=== PATIENT | male | born 1945 | race Caucasian/White ===

== ENCOUNTER 2021-03-10 15:21 | Emergency (ER) | payer MEDICARE ==
[~2021-03-10] VITALS: Ht 177.8 cm; Wt 102.7 kg
[2021-03-10] MEDS ORDERED: IOHEXOL 300 MG/ML 75 ML VIAL. IV ONE (16:00)
--- NOTE | 2021-03-10 16:03 | PHYS DOC ---
Past History Past Surgical History: Appendectomy, Other Additional Past Surgical Histo: MULTIPLE BACK SURGERIES; WRIST SURGERY; ANKLE FX REPAIR (ROSA MARIA DIAZ MD) Alcohol Use: Occasionally (ROSA MARIA DIAZ MD) General Adult EDM: Chief Complaint: CHEST PAIN HPI: HPI: Patient is a 75-year-old male sent in from his primary care office for multiple complaints. Over the past 2 weeks patient has had decreased p.o. intake. Patient states he still has an appetite tries to eat but every time he eats he gets severe substernal chest pain. Pain does not go away when he is not eating but is worse when he tries to eat. Has had some dry heaving but no vomiting. Patient started having diarrhea today and has had 7 nonbloody/nonmelanotic episodes. Denies any fevers or cough. No shortness of breath. Denies any cardiac history. Was seen by his primary care provider and has had labs drawn on 623 showed hemoglobin of 12.5, had labs drawn 86 (6 days ago) which was a hemoglobin of 10.8. Patient denies any history of heart failure or cirrhosis. States he has some postsurgical lower extremity edema that is unchanged from his baseline. Patient feels like his stomach is more distended and states that despite not eating he has gained 6 pounds. (ROSA MARIA DIAZ MD) Review of Systems: Review of Systems: All other systems within normal limits except for as noted in the HPI (ROSA MARIA DIAZ MD) Current Medications: Current Meds: Current Medications Medications (Trade) Dose Ordered Sig/Dominik Start Time Stop Time Status Last Admin Dose Admin Iohexol (Omnipaque 300 Mg/ml) 75 ml 1X ONCE 03/10/21 16:00 03/10/21 16:01 (ROSA MARIA DIAZ MD) Allergies: Allergies: Allergies Coded Allergies Type Severity Reaction Last Updated Verified No Known Drug Allergies 03/10/21 No (ROSA MARIA DIAZ MD) Physical Exam: PE: Constitutional: Well developed, well nourished, no acute distress, non-toxic appearance. [] HENT: Normocephalic, atraumatic, bilateral external ears normal, nose normal. [] Eyes: PERRLA, conjunctiva normal, no discharge. [] Neck: No rigidity, supple, no stridor. [] Cardiovascular: Regular rate and rhythm, brisk cap refill [] Lungs & Thorax: Non labored symmetric respirations, no tachypnea or respiratory distress [] Abdomen: Soft, mildly distended, left lower quadrant tenderness palpation Skin: Warm, dry, no erythema, no rash. [] Back: Unremarkable Extremities: No deformities, range of motion grossly intact, no lower extremity edema [] Neurologic: Alert and oriented X 3, no focal deficits noted. [] Psychologic: Affect normal, judgement normal, mood normal. [] (ROSA MARIA DIAZ MD) Current Patient Data: Vital Signs: Vital Signs Date Time Temp Pulse Resp B/P (MAP) Pulse Ox O2 Delivery O2 Flow Rate FiO2 03/10/21 15:35 98.4 101 19 148/71 94 Room Air (ROSA MARIA DIAZ MD) EKG: EKG: Sinus tachycardia, heart rate 102 bpm, left axis deviation, left bundle-branch block, does not meet Meagan's criteria for STEMI. Left bundle branch branch block not new according to patient's primary care provider [] (ROSA MARIA DIAZ MD) EKG: My interpretation EKG shows a sinus tachycardia 1 and 2 bpm. Leftward axis. Left bundle branch block. Is an abnormal EKG. (OFE PHILLIPS MD) Radiology/Procedures: Radiology/Procedures: [place] [address] IMAGING REPORT Signed PATIENT: MANNIE MORTON JACCOUNT: [id number] : 1945 LOCATION: ER AGE: 75 SEX: M EXAM STATUS: REG ER ORD. PHYSICIAN: ROSA MARIA DIAZ MD REASON: chest and LUQ pain PROCEDURE: CT CHEST ABD PELVIS W/CONTRAST EXAM: CT OF THE CHEST, ABDOMEN AND PELVIS WITH CONTRAST. HISTORY: Chest and left upper quadrant pain. TECHNIQUE: Computed tomography of the chest, abdomen and pelvis was performed after the intravenous administration of iodinated contrast. One or more of the following individualized dose reduction techniques were utilized for this examination: 1. Automated exposure control. 2. Adjustment of the mA and/or kV according to patient size. 3. Use of iterative reconstruction technique. COMPARISON: None. FINDINGS: Bone windows reveal no suspicious lesions. A right total shoulder arthroplasty is noted. Spinal stimulator electrodes are noted within the mid thoracic spine. There are instrumented posterior fusion changes from L4 through S1. Mildly prominent lateral aortic lymph nodes measure up to 13 x 9 mm and may be reactive in this setting. There are no clearly pathologically enlarged mediastinal or axillary lymph nodes. There is a moderate pericardial effusion with some pericardial enhancement. No pericardial masses are identified. Bilateral pleural effusions are small to moderate. The heart is not enlarged. There are atherosclerotic calcifications of the coronary arteries. There is no evidence of aortic dissection or pulmonary embolism. A groundglass density nodule in the right upper lobe on image 40 measures 8 mm. There is minimal subpleural interstitial line thickening. Compressive atelectasis is noted in both lower lobes. There is a calcified granuloma in the left upper lobe. Gallstones are noted. There is respiratory motion artifact within the upper abdomen. There appears to be mild gallbladder wall thickening. There is no biliary dilatation. The pancreas, adrenal glands, liver, spleen and kidneys are unremarkable. There is bladder wall thickening with some perivesical edema. Additional edema extends superiorly in the retroperitoneum. The colon is decompressed but also demonstrates mild wall thickening. There is no evidence of appendicitis. There is no small bowel obstruction. IMPRESSION: 1. Moderate pericardial effusion with pericardial enhancement. Correlate for pericardial inflammation. 2. Small to moderate bilateral pleural effusions. 3. A 6 mm groundglass nodule in the right upper lobe is most likely postinflammatory. Follow-up could be performed in one year if there are risk factors and long-term stability is not already known. 4. Cholelithiasis. Mild gallbladder wall thickening may reflect a systemic edematous state rather than acute cholecystitis. Correlate with other data. 5. Bladder wall thickening with perivesical inflammation. Correlate for cystitis. 6. Mild colonic wall thickening may reflect luminal decompression or colitis, versus systemic edema. Electronically signed by: Cesar Can MD (03/10/2021 5:04 PM) [id number] DICTATED AND SIGNED BY: BAILEY CAN MD DATE: 03/10/21 7825 CC: ROSA MARIA DIAZ MD; JOSE RHOADES MD ~MTH0 0 [] (ROSA MARIA DIAZ MD) Radiology/Procedures: [place] [address] IMAGING REPORT Signed PATIENT: MANNIE MORTON JACCOUNT: [id number] : 1945 LOCATION: ER AGE: 75 SEX: M EXAM STATUS: REG ER ORD. PHYSICIAN: ROSA MARIA DIAZ MD REASON: chest and LUQ pain PROCEDURE: CT CHEST ABD PELVIS W/CONTRAST EXAM: CT OF THE CHEST, ABDOMEN AND PELVIS WITH CONTRAST. HISTORY: Chest and left upper quadrant pain. TECHNIQUE: Computed tomography of the chest, abdomen and pelvis was performed after the intravenous administration of iodinated contrast. One or more of the following individualized dose reduction techniques were utilized for this examination: 1. Automated exposure control. 2. Adjustment of the mA and/or kV according to patient size. 3. Use of iterative reconstruction technique. COMPARISON: None. FINDINGS: Bone windows reveal no suspicious lesions. A right total shoulder arthroplasty is noted. Spinal stimulator electrodes are noted within the mid thoracic spine. There are instrumented posterior fusion changes from L4 through S1. Mildly prominent lateral aortic lymph nodes measure up to 13 x 9 mm and may be reactive in this setting. There are no clearly pathologically enlarged mediastinal or axillary lymph nodes. There is a moderate pericardial effusion with some pericardial enhancement. No pericardial masses are identified. Bilateral pleural effusions are small to moderate. The heart is not enlarged. There are atherosclerotic calcifications of the coronary arteries. There is no evidence of aortic dissection or pulmonary embolism. A groundglass density nodule in the right upper lobe on image 40 measures 8 mm. There is minimal subpleural interstitial line thickening. Compressive atelectasis is noted in both lower lobes. There is a calcified granuloma in the left upper lobe. Gallstones are noted. There is respiratory motion artifact within the upper abdomen. There appears to be mild gallbladder wall thickening. There is no biliary dilatation. The pancreas, adrenal glands, liver, spleen and kidneys are unremarkable. There is bladder wall thickening with some perivesical edema. Additional edema extends superiorly in the retroperitoneum. The colon is decompressed but also demonstrates mild wall thickening. There is no evidence of appendicitis. There is no small bowel obstruction. IMPRESSION: 1. Moderate pericardial effusion with pericardial enhancement. Correlate for pericardial inflammation. 2. Small to moderate bilateral pleural effusions. 3. A 6 mm groundglass nodule in the right upper lobe is most likely postinflammatory. Follow-up could be performed in one year if there are risk factors and long-term stability is not already known. 4. Cholelithiasis. Mild gallbladder wall thickening may reflect a systemic edematous state rather than acute cholecystitis. Correlate with other data. 5. Bladder wall thickening with perivesical inflammation. Correlate for cystitis. 6. Mild colonic wall thickening may reflect luminal decompression or colitis, versus systemic edema. Electronically signed by: Cesra Can MD (03/10/2021 5:04 PM) [id number] DICTATED AND SIGNED BY: BAILEY CAN MD DATE: 03/10/21 2600 CC: ROSA MARIA DIAZ MD; JOSE RHOADES MD ~[facility] [address] [place] [address] IMAGING REPORT Signed PATIENT: MANNIE MORTON JACCOUNT: [id number] : 1945 LOCATION: ER AGE: 75 SEX: M EXAM STATUS: REG ER ORD. PHYSICIAN: ROSA MARIA DIAZ MD REASON: Cholecystitis, Abnormal CT PROCEDURE: ABDOMEN LTD EXAM: ULTRASOUND ABDOMEN LIMITED CLINICAL HISTORY: Reason: Cholecystitis, Abnormal CT / Spl. Instructions: / History: COMPARISON: 03/10/2021 CT TECHNIQUE: Limited ultrasound examination of the right upper quadrant of the abdomen was performed. FINDINGS: Liver contour is normal. Hepatopedal flow noted in the portal vein. Gallbladder is partially distended. Debris is noted layering within the gallbladder. No pericholecystic fluid or wall thickening. Common bile duct measures 4 mm in diameter. Right kidney measures 12.2 cm in long axis. No perinephric inflammation or hydronephrosis. Visualized portions aorta and IVC are unremarkable. IMPRESSION: 1. Distended gallbladder without secondary evidence for acute cholecystitis. 2. Normal sonographic appearance the liver. 3. No right-sided hydronephrosis. Electronically signed by: Josephine Chavarria MD (03/10/2021 6:00 PM) [facility] DICTATED AND SIGNED BY: JOSEPHINE CHAVARRIA MD DATE: 08/12/21 1756 CC: ROSA MARIA DIAZ MD; JOSE RHOADES MD ~MTH0 0 (OFE PHILLIPS MD) Heart Score: C/O Chest Pain: N/A Risk Factors: Risk Factors: DM, Current or recent (<one month) smoker, HTN, HLP, family history of CAD, obesity. Risk Scores: Score 0 - 3: 2.5% MACE over next 6 weeks - Discharge Home Score 4 - 6: 20.3% MACE over next 6 weeks - Admit for Clinical Observation Score 7 - 10: 72.7% MACE over next 6 weeks - Early Invasive Strategies (ROSA MARIA DIAZ MD) Course & Med Decision Making: Course & Med Decision Making Pertinent Labs and Imaging studies reviewed. (See chart for details) []. Transitioned care to Dr Phillips at shift change, pending ultrasound (ROSA MARIA DIAZ MD) Course & Med Decision Making See Dr. Diaz chart for details prior shift change 1800 hr.s Discussed presentation, testing and tx. plan with Dr. Alberts and Dr. Barclay. Transfer to [facility]. See Dr. Diaz chart for details prior shift change at 1800 hrs. Will cover with antibiotic Rocephin and Flagyl. COVID pendling. Fluids . Impression: 1. Acute cholecystitis x 1 week 2. Anemia hemoglobin 10.8-macrocytic 103, hypochromic 36 3. Hyponatremia 126 4. CRP 320 5. BNP 1494 6. Malnutrition albumin 2.9 7. Elev. Alk Phos (OFE PHILLIPS MD) Dragon Disclaimer: Dragon Disclaimer: This electronic medical record was generated, in whole or in part, using a voice recognition dictation system. (ROSA MARIA DIAZ MD) Departure Departure: Referrals: JOSE RHOADES MD (PCP) ROSA MARIA DIAZ MD Mar 10, 2021 16:02 OFE PHILLIPS MD Mar 10, 2021 18:14
[2021-03-10 16:17] LABS: BASO % 0 % (0-3); EOS % 0 % (0-3); HEMATOCRIT 30.9 % (39.0-53.0); HEMOGLOBIN 10.8 g/dL (13.0-17.5); LYMPH # 0.2 x10^3/uL (1.0-4.8); LYMPH % 2 % (24-48); MEAN CORPUSCULAR HEMOGLOBIN 36 pg (25-35); MEAN CORPUSCULAR HGB CONC 35 g/dL (31-37); MEAN CORPUSCULAR VOLUME 103 fL (79-100); MONO % 9 % (0-9); NEUT # 9.6 x10^3uL (1.8-7.7); NEUT % 88 % (31-73); PLATELET COUNT 264 x10^3/uL (140-400); RED BLOOD COUNT 2.99 x10^6/uL (4.30-5.70); RED CELL DISTRIBUTION WIDTH 13.5 % (11.5-14.5); WHITE BLOOD COUNT 10.9 x10^3/uL (4.0-11.0)
[2021-03-10 16:22] LABS: BILIRUBIN,URINE NEG (NEG); CLARITY,URINE HAZY; COLOR,URINE AMBER; GLUCOSE,URINE NEG (NEG); NITRITE,URINE NEG (NEG)
[2021-03-10 16:23] LABS: BACTERIA,URINE 0 /HPF (0-FEW); SQUAMOUS EPITHELIAL CELL,UR OCC /LPF
[2021-03-10 16:25] LABS: CALCIUM 8.3 mg/dL (8.5-10.1); GFR 72.5
[2021-03-10 16:38] LABS: ALBUMIN 2.9 g/dL (3.4-5.0); ALBUMIN/GLOBULIN RATIO 0.8 (1.0-1.7); MAGNESIUM 2.3 mg/dL (1.8-2.4); PHOSPHORUS 2.9 mg/dL (2.6-4.7); TOTAL BILIRUBIN 3.1 mg/dL (0.2-1.0); TOTAL PROTEIN 6.6 g/dL (6.4-8.2)
[2021-03-10] MEDS ORDERED: ONDANSETRON PF 4 MG/2 ML VIAL. ONE (16:42)
[2021-03-10] MEDS ORDERED: ONDANSETRON PF 4 MG/2 ML VIAL. IVP ONE (16:45)
--- NOTE | 2021-03-10 16:48 | EKG ---
[address] [address] Test Date: 2021-03-10 Test Time: 15:34:55 Pat Name: MANNIE MORTON Department: Room: Gender: M Gin Inspector: JOANNE : 1945 Requested By: ROSA MARIA DIAZ Order Number: [id number] Reading MD: Measurements Intervals [place] Rate: 102 P: 59 DC: 190 QRS: 0 QRSD: 144 T: 124 QT: 366 QTc: 482 Interpretive Statements SINUS TACHYCARDIA LEFTWARD AXIS LEFT BUNDLE BRANCH BLOCK ABNORMAL ECG RI6.02 No previous ECG available for comparison
--- NOTE | 2021-03-10 17:06 | RAD ---
EXAM: CT OF THE CHEST, ABDOMEN AND PELVIS WITH CONTRAST. HISTORY: Chest and left upper quadrant pain. TECHNIQUE: Computed tomography of the chest, abdomen and pelvis was performed after the intravenous a dministration of iodinated contrast. One or more of the following individualized dose reduction techn iques were utilized for this examination: 1. Automated exposure control. 2. Adjustment of the mA and/or kV according to patient size. 3. Use of iterative reconstruction technique. COMPARISON: None. FINDINGS: Bone windows reveal no suspicious lesions. A right total shoulder arthroplasty is noted. Sp inal stimulator electrodes are noted within the mid thoracic spine. There are instrumented posterior fusion changes from L4 through S1. Mildly prominent lateral aortic lymph nodes measure up to 13 x 9 mm and may be reactive in this setti ng. There are no clearly pathologically enlarged mediastinal or axillary lymph nodes. There is a mode rate pericardial effusion with some pericardial enhancement. No pericardial masses are identified. Bi lateral pleural effusions are small to moderate. The heart is not enlarged. There are atherosclerotic calcifications of the coronary arteries. There is no evidence of aortic dissection or pulmonary embo lism. A groundglass density nodule in the right upper lobe on image 40 measures 8 mm. There is minimal subp leural interstitial line thickening. Compressive atelectasis is noted in both lower lobes. There is a calcified granuloma in the left upper lobe. Gallstones are noted. There is respiratory motion artifact within the upper abdomen. There appears to be mild gallbladder wall thickening. There is no biliary dilatation. The pancreas, adrenal glands, liver, spleen and kidneys are unremarkable. There is bladder wall thick ening with some perivesical edema. Additional edema extends superiorly in the retroperitoneum. The co sabrina is decompressed but also demonstrates mild wall thickening. There is no evidence of appendicitis. There is no small bowel obstruction. IMPRESSION: 1. Moderate pericardial effusion with pericardial enhancement. Correlate for pericardial inflammation . 2. Small to moderate bilateral pleural effusions. 3. A 6 mm groundglass nodule in the right upper lobe is most likely postinflammatory. Follow-up could be performed in one year if there are risk factors and long-term stability is not already known. 4. Cholelithiasis. Mild gallbladder wall thickening may reflect a systemic edematous state rather navjot n acute cholecystitis. Correlate with other data. 5. Bladder wall thickening with perivesical inflammation. Correlate for cystitis. 6. Mild colonic wall thickening may reflect luminal decompression or colitis, versus systemic edema. Electronically signed by: Cesar Can MD (03/10/2021 5:04 PM) [id number]
--- NOTE | 2021-03-10 18:02 | RAD ---
EXAM: ULTRASOUND ABDOMEN LIMITED CLINICAL HISTORY: Reason: Cholecystitis, Abnormal CT / Spl. Instructions: / History: COMPARISON: 03/10/2021 CT TECHNIQUE: Limited ultrasound examination of the right upper quadrant of the abdomen was performed. FINDINGS: Liver contour is normal. Hepatopedal flow noted in the portal vein. Gallbladder is partially distended. Debris is noted layering within the gallbladder. No pericholecyst ic fluid or wall thickening. Common bile duct measures 4 mm in diameter. Right kidney measures 12.2 cm in long axis. No perinephric inflammation or hydronephrosis. Visualized portions aorta and IVC are unremarkable. IMPRESSION: 1. Distended gallbladder without secondary evidence for acute cholecystitis. 2. Normal sonographic appearance the liver. 3. No right-sided hydronephrosis. Electronically signed by: Josephine Avalos MD (03/10/2021 6:00 PM) VANNESA
[2021-03-10] MEDS ORDERED: IV NORMAL SALINE 1,000ML 1,000 ML IV ONE (18:15)
[2021-03-10] MEDS ORDERED: cefTRIAXone SODIUM 1 GM VIAL ONE (18:29)
[2021-03-10] MEDS ORDERED: IV NORMAL SALINE 50ML 50 ML ONE (18:29)
[2021-03-10 18:32] VITALS: BP 124/70
[2021-03-10] MEDS ORDERED: SODIUM BICARB ADULT 8.4% 50 MEQ/50 ML DISP.SYRIN. IV ONE (18:45)
[2021-03-10] MEDS ORDERED: FUROSEMIDE 40 MG/4 ML VIAL IVP ONE (18:45)
[2021-03-10] MEDS ORDERED: MORPHINE SULFATE 10 MG/ML SYRINGE. SQ ONE (18:45)
== END 2021-03-10 19:39 | disposition short-term general hospital (02) ==
LOC: ER 15:21
DX: K81.0 Acute cholecystitis (principal); D53.9 Nutritional anemia, unspecified; E87.1 Hypo-osmolality and hyponatremia; E46 Unspecified protein-calorie malnutrition; R07.2 Precordial pain; R79.89 Other specified abnormal findings of blood chemistry; Z20.822 Contact with and (suspected) exposure to COVID-19; Z68.32 Body mass index [BMI] 32.0-32.9, adult
CPT/HCPCS: 36415; 71260; 74177; 76705; 80053; 81001; 83605; 83690; 83735; 83874; 83880; 84100; 84484; 85025; 86140; 87426; 93005; 96365; 96372; 96375; 99285; C9803; J0696; J1940; J2270; J2405; J3490; J7030; U0003

== ENCOUNTER → 2021-07-11 | Outpatient (CLI) | payer MEDICARE ==
--- NOTE | 2021-07-11 17:27 | RAD ---
CT head without contrast dated 07/11/2021 5:24 PM Comparison: None CLINICAL INDICATION: Severe headache TECHNIQUE: Contiguous axial imaging of the head was performed from skull base to vertex. One or more of the following individualized dose reduction techniques were utilized for this examinat ion: 1. Automated exposure control 2. Adjustment of the mA and/or kV according to patient size 3. Use of iterative reconstruction technique. FINDINGS: Ventricles and sulci are mildly prominent for age. No midline shift or mass effect. Mild patchy low d ensity in the deep/subcortical periventricular white matter. No hemorrhage or extra-axial collection. Posterior fossa and brainstem unremarkable. Visualized paranasal sinuses and mastoid air cells are clear. No apparent calvarial abnormality. IMPRESSION: 1. No evidence of acute intracranial hemorrhage or mass. 2. Mild chronic small vessel ischemic changes and atrophy. Electronically signed by: Andre Jennings MD (07/11/2021 5:25 PM) HEMA
== END ==
LOC: CT 16:58
PROVIDERS: ATTEND Physician Assistant
DX: I67.82 Cerebral ischemia (principal); G31.9 Degenerative disease of nervous system, unspecified; R51.9 Headache, unspecified
CPT/HCPCS: 70450